=== PATIENT | female | born 2000 | race Caucasian/White ===

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

== ENCOUNTER 2021-01-15 20:43 | Emergency (ER) | payer MEDICAID ==
[~2021-01-15] VITALS: Ht 162.6 cm; Wt 118.2 kg
[~2021-01-15 20:43] MED LIST changes: +NITR100C6 PO; +PHEN-786 PO
[2021-01-15 20:50] VITALS: BP 149/98
== END 2021-01-16 00:40 | disposition left against medical advice (07) ==
LOC: ER 20:44
DX: M25.511 Pain in right shoulder (principal); Z53.21 Procedure and treatment not carried out due to patient leaving prior to being seen by health care provider

== ENCOUNTER 2021-01-16 07:09 | Emergency (ER) | payer MEDICAID ==
[~2021-01-16] VITALS: Ht 162.6 cm; Wt 121.0 kg
[2021-01-16 07:12] VITALS: BP 138/81
== END 2021-01-16 09:05 | disposition left against medical advice (07) ==
LOC: ER 07:09
DX: M25.519 Pain in unspecified shoulder (principal); Z53.21 Procedure and treatment not carried out due to patient leaving prior to being seen by health care provider

== ENCOUNTER 2021-03-27 19:29 | Emergency (ER) | payer MEDICAID ==
[~2021-03-27] VITALS: Ht 162.6 cm; Wt 122.7 kg
[2021-03-27 19:35] VITALS: BP 135/80
[2021-03-27] MEDS ORDERED: ketorolac trometh. 30mg/ml inj. IM ONE (20:30)
== END 2021-03-27 21:11 | disposition home or self-care (01) ==
LOC: ER 19:30
DX: S93.401A Sprain of unspecified ligament of right ankle, initial encounter (principal); Z79.899 Other long term (current) drug therapy; X58.XXXA Exposure to other specified factors, initial encounter; Y93.89 Activity, other specified; Y92.89 Other specified places as the place of occurrence of the external cause; Y99.8 Other external cause status
CPT/HCPCS: 73610; 96372; 99283; J1885

== ENCOUNTER 2021-07-27 07:21 | Emergency (ER) | payer MEDICAID ==
[~2021-07-27] VITALS: Ht 162.6 cm; Wt 122.7 kg
[2021-07-27 09:51] VITALS: BP 145/96
== END 2021-07-27 09:52 | disposition home or self-care (01) ==
LOC: ER 07:21
DX: J02.9 Acute pharyngitis, unspecified (principal); R05.9 Cough, unspecified; R50.9 Fever, unspecified; Z20.822 Contact with and (suspected) exposure to COVID-19
CPT/HCPCS: 71045; 87635; 99284; C9803

== ENCOUNTER 2023-11-13 23:43 | Emergency (ER) | payer MEDICAID ==
[~2023-11-13] VITALS: Ht 162.6 cm; Wt 127.3 kg
[2023-11-13 23:55] VITALS: BP 145/53; PULSE 80; RESP 16; TEMP 97.6; O2SAT 98
[2023-11-14] MEDS ORDERED: AMOX-580 PO (00:05)
== END 2023-11-14 00:30 | disposition home or self-care (01) ==
LOC: ER 23:43
DX: H66.91 Otitis media, unspecified, right ear (principal); Z79.899 Other long term (current) drug therapy
CPT/HCPCS: 99283

== ENCOUNTER 2024-02-09 23:03 | Emergency (ER) | payer MEDICAID ==
[~2024-02-09] VITALS: Ht 162.6 cm; Wt 129.6 kg
[~2024-02-09 23:03] MED LIST changes: -LOPE2CAP PO; -ONDA8TAB13 PO; -iohexol 300mg/ml 100ml inj. ONE
[2024-02-09 23:34] LABS: HEMOGLOBIN 12.2 g/dl (12.0-16.0)
[2024-02-09 23:36] LABS: BASOPHILS % (AUTO) 0.2 % (0-1); EOSINOPHILS % (AUTO) 0 % (0-6); HEMATOCRIT 36.9 % (35.0-45.0); LYMPHOCYTES # (AUTO) 1.3 X10'3 (1.1-4.8); LYMPHOCYTES % (AUTO) 7.8 % (21-51); MEAN CORPUSCULAR HGB CONC 33.1 g/dL (33.0-36.5); MEAN CORPUSCULAR VOLUME 81.6 FL (78-98); MEAN PLATELET VOLUME 8.3 FL (7.4-10.4); MONOCYTES % (AUTO) 6.3 % (2-12); NEUTROPHILS # (AUTO) 14.1 X10'3 (1.8-7.7); NEUTROPHILS % (AUTO) 85.7 % (42-75); PLATELET COUNT 275 X10'3 (140-440); RED BLOOD COUNT 4.52 X10'6 (4.20-5.60); RED CELL DISTRIBUTION WIDTH 14.1 % (11.5-14.5); WHITE BLOOD COUNT 16.4 X10'3 (4.5-11.0)
[2024-02-09] MEDS: acetaminophen 325mg tablet PO ONE (23:36)
[2024-02-09 23:45] LABS: ALANINE AMINOTRANSFERASE 20 U/L (12-78); ALBUMIN 3.3 G/DL (3.4-5.0); ALBUMIN/GLOBULIN RATIO 0.7 (1.1-1.5); ALKALINE PHOSPHATASE 54 IU/L (46-116); ANION GAP 10 (8-16); ASPARTATE AMINO TRANSFERASE 9 U/L (10-37); BILIRUBIN,TOTAL 0.4 MG/DL (0.1-1.0); BLOOD UREA NITROGEN 6 MG/DL (7-18); BUN/CREATININE RATIO 8.3 (10.0-20.0); CALCIUM 9.3 MG/DL (8.5-10.1); CHLORIDE 98 MMOL/L (99-107); CREATININE 0.72 MG/DL (0.40-0.90); GLUCOSE 101 MG/DL (70-104); LIPASE 23 U/L (16-77); POTASSIUM 3.6 MMOL/L (3.5-5.1); SODIUM 136 MMOL/L (135-145); TOTAL CARBON DIOXIDE 27.9 MMOL/L (24-32); TOTAL PROTEIN 7.8 G/DL (6.4-8.2); eCRCL 106 ML/MIN; eGFR > 90 ML/MIN
[2024-02-10] MEDS ORDERED: ONDA8TAB13 PO (01:51)
[2024-02-10] MEDS ORDERED: LOPE2CAP PO (01:51)
[2024-02-10] MEDS: ondansetron 4mg rapidly disintigrating tab PO ONE (02:11)
[2024-02-10 02:25] VITALS: BP 120/59; PULSE 100; RESP 18; TEMP 98.9; O2SAT 98
== END 2024-02-10 02:26 | disposition home or self-care (01) ==
LOC: ER 23:04
DX: K52.9 Noninfective gastroenteritis and colitis, unspecified (principal); R50.9 Fever, unspecified; R11.2 Nausea with vomiting, unspecified; Z79.899 Other long term (current) drug therapy; Z79.2 Long term (current) use of antibiotics
CPT/HCPCS: 36415; 76700; 80053; 83690; 85025; 99284

== ENCOUNTER → 2024-02-09 | Emergency (ER) | payer MEDICAID ==
[~2024-02-09] VITALS: Ht 162.6 cm; Wt 133.8 kg
[~2024-02-09] MED LIST changes: +LOPE2CAP PO; +ONDA8TAB13 PO; +iohexol 300mg/ml 100ml inj. ONE
[2024-02-09 09:25] VITALS: BP 126/89; PULSE 98; TEMP 97.8; O2SAT 98
[2024-02-09 10:17] LABS: BASOPHILS % (AUTO) 0.1 % (0-1); EOSINOPHILS # (AUTO) 0.1 X10'3 (0-0.9); EOSINOPHILS % (AUTO) 0.2 % (0-6); HEMATOCRIT 38.5 % (35.0-45.0); HEMOGLOBIN 12.5 g/dl (12.0-16.0); LYMPHOCYTES # (AUTO) 1.4 X10'3 (1.1-4.8); LYMPHOCYTES % (AUTO) 6.2 % (21-51); MEAN CORPUSCULAR HEMOGLOBIN 26.8 PG (27.0-31.0); MEAN CORPUSCULAR HGB CONC 32.3 g/dL (33.0-36.5); MEAN CORPUSCULAR VOLUME 82.8 FL (78-98); MEAN PLATELET VOLUME 8.3 FL (7.4-10.4); MONOCYTES % (AUTO) 4.5 % (2-12); NEUTROPHILS # (AUTO) 19.4 X10'3 (1.8-7.7); PLATELET COUNT 326 X10'3 (140-440); RED BLOOD COUNT 4.65 X10'6 (4.20-5.60); RED CELL DISTRIBUTION WIDTH 14.7 % (11.5-14.5); WHITE BLOOD COUNT 21.8 X10'3 (4.5-11.0)
[2024-02-09 10:34] LABS: ALANINE AMINOTRANSFERASE 22 U/L (12-78); ALBUMIN 3.5 G/DL (3.4-5.0); ALBUMIN/GLOBULIN RATIO 0.8 (1.1-1.5); ALKALINE PHOSPHATASE 57 IU/L (46-116); AMYLASE 42 U/L (25-115); ANION GAP 8 (8-16); ASPARTATE AMINO TRANSFERASE 11 U/L (10-37); BILIRUBIN,TOTAL 0.3 MG/DL (0.1-1.0); BLOOD UREA NITROGEN 10 MG/DL (7-18); BUN/CREATININE RATIO 13.3 (10.0-20.0); CALCIUM 9.3 MG/DL (8.5-10.1); CHLORIDE 101 MMOL/L (99-107); CREATININE 0.75 MG/DL (0.40-0.90); GLUCOSE 147 MG/DL (70-104); LIPASE 32 U/L (16-77); POTASSIUM 3.9 MMOL/L (3.5-5.1); SODIUM 136 MMOL/L (135-145); TOTAL CARBON DIOXIDE 27.5 MMOL/L (24-32); eCRCL 102 ML/MIN; eGFR > 90 ML/MIN
[2024-02-09 11:29] LABS: URINE HCG NEGATIVE (NEG)
[2024-02-09 11:32] LABS: BILIRUBIN,URINE NEGATIVE (Neg); CLARITY,URINE CLOUDY (Clear); COLOR,URINE YELLOW (Yellow); GLUCOSE, URINE NEGATIVE (Neg); KETONES,URINE NEGATIVE (Neg); LEUKOCYTE ESTERASE ,URINE NEGATIVE (Neg); NITRITES, URINE NEGATIVE (Neg); OCCULT BLOOD,URINE MODERATE (Neg); PH,URINE 5.5 (4.8-8.0); PROTEIN,URINE NEGATIVE (Neg); UROBILINOGEN,URINE 0.2 E.U/dL (0.2-1.0)
[2024-02-09 11:47] LABS: UA COLLECTION TYPE CLN CATCH MIDSTREAM
[2024-02-09 11:56] LABS: AMORPHOUS URATES 4+; SQUAMOUS EPITHELIAL CELL,UR MODERATE /LPF (FEW)
[2024-02-09 12:17] LABS: WBC,URINE NONE SEEN /HPF (0-4)
[2024-02-09 12:18] LABS: BACTERIA,URINE FEW /HPF (Neg); RBC,URINE NONE SEEN /HPF (0-2)
[2024-02-09] MEDS: ondansetron/PF 4mg/2ml inj IV ONE (12:43)
[2024-02-09] MEDS: morphine 2 MG/ML inj. syringe IV PRN (12:43)
[2024-02-09 13:49] VITALS: RESP 14
== END | disposition home or self-care (01) ==
LOC: ER 09:22
DX: R10.11 Right upper quadrant pain (principal); R10.31 Right lower quadrant pain
CPT/HCPCS: 36415; 74177; 76700; 80053; 81001; 81025; 82150; 83690; 85025; 96374; 96375; 99285; J2270; J2405; J3490; Q9967

== ENCOUNTER 2025-01-02 19:17 | Emergency (ER) | payer MEDICAID ==
[~2025-01-02] VITALS: Ht 162.6 cm; Wt 111.2 kg
[~2025-01-02 19:17] MED LIST changes: +LOPE2CAP PO; +ONDA-245 PO
[2025-01-02 19:20] VITALS: TEMP 98.1
--- NOTE | 2025-01-02 20:10 | Physician Documentation ---
History of Present Illness ~ Chief Complaint: Post-operative complication Stated Complaint: POST OP COMPLICATIONS Time Seen by MD: 19:48 OK to notify your PCP?: Yes Primary Medical Doctor: DEVON Bhardwaj Source: patient Mode of Arrival: POV Exam Limitations: no limitations HPI This is a 24-year-old female who comes in stating that two months ago she had a gastric sleeve performed in [facility] by a Dr. Dariusz Mantilla. She says starting yesterday she has not been able to keep water or food down. He states it feels like it is sits in her epigastric area and comes back up. She called the surgeon who performed the gastric sleeve who told her to come to the ER. The patient was states she had one syncopal episode earlier today which prompted her to come to the ER. Right now she was not complaining of pain though she states she gets some gastric distention when she swallows food or fluid. She denies change in bladder or bowel habits. She denies chest pain or shortness of breath. Medication Reconciliation Allergies: Coded Allergies: No Known Allergies (Unverified , 02/09/24) Scheduled Diphenhydramine Hcl (Benadryl), 1 CAP PO HS Loperamide Hcl (Loperamide), 2 CAP PO Q6H Nitrofurantoin Monohyd/M-Cryst (Macrobid 100 mg Capsule), 1 CAP PO Q12H Ondansetron 8mg ODT (Ondansetron Odt), 1 TAB PO Q6H Phenazopyridine Hcl (Pyridium tablet), 1 TAB PO Q8H Past Medical History Past Medical History: No Pertinent History Past Surgical History: no surgical history Alcohol Use: None Drug Use: none Lives with: Family Lives In: Home Occupation: child Physical Exam Vital Signs: Temperature: 98.1, Source: Oral, Heart Rate: 61, Respiratory Rate: 18, BP: 130/64, Pulse Oximetry: 99, Weight: 111.200 Pulse Oximetry Reflects: adequate oxygenation General Appearance: alert, WD/WN, obese Respiratory No accessory muscle use or retractions. Lungs are clear to auscultation in all [place]. Gastrointestinal No tenderness to palpation x4 quads. Normoactive bowel sounds x4 quads. No rigidity, rebound or guarding. Skin: normal color, warm/dry Progress Results/Orders Reviewed/noted all lab results: Yes Results/Orders Medications Received in ER Medications (Trade) Dose Ordered Sig/Sloan Route PRN Reason Start Time Stop Time Status Last Admin Dose Admin Sodium Chloride 1,000 ml @ 200 mls/hr Q5H ONCE IV 01/02/25 20:05 01/03/25 01:04 DC 01/02/25 20:28 200 MLS/HR (Zofran 4mg/2ml vial) 4 mg ONCE ONCE IV 01/02/25 20:05 01/02/25 20:08 DC 01/02/25 20:28 4 MG (Gastrografin 66-10 oral solution) 30 ml ONCE ONCE PO 01/02/25 22:30 01/02/25 22:31 DC 01/02/25 22:35 30 ML Vital Signs 01/02/25 01/02/25 01/02/25 01/02/25 19:20 21:00 23:17 23:39 Temp 98.1 Pulse 61 61 Resp 18 14 16 B/P (MAP) 130/64 106/48 (67) Pulse Ox 99 99 O2 Flow Rate 0 01/03/25 01/03/25 00:46 01:33 Pulse 51 52 Resp 17 15 B/P (MAP) 106/55 (72) 119/53 (75) Pulse Ox 99 97 Laboratory Tests Test 01/02/25 20:14 White Blood Count 9.6 Red Blood Count 4.94 Hemoglobin 13.6 Hematocrit 40.9 Mean Corpuscular Volume 82.9 Mean Corpuscular Hemoglobin 27.5 Mean Corpuscular Hemoglobin Concent 33.1 Red Cell Distribution Width 16.2 H Platelet Count 234 Mean Platelet Volume 9.3 Neutrophils (%) (Auto) 63.8 Lymphocytes (%) (Auto) 28.3 Monocytes (%) (Auto) 6.9 Eosinophils (%) (Auto) 0.7 Basophils (%) (Auto) 0.3 Neutrophils # (Auto) 6.1 Lymphocytes # (Auto) 2.7 Monocytes # (Auto) 0.7 Eosinophils # (Auto) 0.1 Basophils # (Auto) 0.0 CBC Comment Sodium Level 140 Potassium Level 3.5 Chloride Level 104 Carbon Dioxide Level 22.9 L Anion Gap 13 Blood Urea Nitrogen 6 L Creatinine 0.53 Estimated GFR/1.73 m2 > 90 BUN/Creatinine Ratio 11.3 Glucose Level 79 Calcium Level 9.5 Total Bilirubin 0.6 Aspartate Amino Transf (AST/SGOT) 28 Alanine Aminotransferase (ALT/SGPT) 41 Alkaline Phosphatase 79 Total Protein 7.6 Albumin 4.0 Globulin 3.6 Albumin/Globulin Ratio 1.1 HCG Beta Subunit < 1.0 Chemistry Comments Medical Decision Making Findings I suspect the patient has a either in his off she was stricture or esophageal obstruction. I called and spoke with the on-call electrical prospector before performing any imaging. He suggested that I get a CT scan of the chest and abdomen with oral and IV contrast. I did voice my concerns as the patient was not able to keep any fluids down and did not want her to aspirate. He was still suggested that I get the imaging so I did order this study. Dr. Hood: Upon re-evaluation patient was sitting comfortably upright in bed. Labs were reassuring for no signs of dehydration although I do believe she was having problems with possible esophageal stricture or regurgitation she was states she feels comfortable to follow up with her doctor today regarding management. Patient has been instructed to return to the emergency room if she was unable to keep anything down. Additional Comments Esophageal stricture. Complications of gastric sleeve. Departure Disposition: HOME / SELF CARE / HOMELESS Impression: Primary Impression: Dysphagia Condition: Fair Discharge Instructions: Dysphagia Additional Instructions: Follow up with your electrical prospector today for management Referrals: NO PRIMARY CARE PROVIDER (PCP) Education Educated: Patient Educated regarding: diagnosis, need for follow up Signature Scribe Signature: No scribe Attestation: The note accurately reflects work and decisions made by me.Barrera Hood MD 01/03/25 02:21 LA RIVERA Jan 02, 2025 20:10 BARRERA HOOD MD Jan 03, 2025 02:22
[2025-01-02 20:26] LABS: BASOPHILS % (AUTO) 0.3 % (0-1); EOSINOPHILS # (AUTO) 0.1 X10'3 (0-0.9); EOSINOPHILS % (AUTO) 0.7 % (0-6); HEMATOCRIT 40.9 % (35.0-45.0); HEMOGLOBIN 13.6 g/dl (12.0-16.0); LYMPHOCYTES # (AUTO) 2.7 X10'3 (1.1-4.8); LYMPHOCYTES % (AUTO) 28.3 % (21-51); MEAN CORPUSCULAR HEMOGLOBIN 27.5 PG (27.0-31.0); MEAN CORPUSCULAR HGB CONC 33.1 g/dL (33.0-36.5); MEAN CORPUSCULAR VOLUME 82.9 FL (78-98); MEAN PLATELET VOLUME 9.3 FL (7.4-10.4); MONOCYTES # (AUTO) 0.7 X10'3 (0-0.9); MONOCYTES % (AUTO) 6.9 % (2-12); NEUTROPHILS # (AUTO) 6.1 X10'3 (1.8-7.7); NEUTROPHILS % (AUTO) 63.8 % (42-75); PLATELET COUNT 234 X10'3 (140-440); RED BLOOD COUNT 4.94 X10'6 (4.20-5.60); RED CELL DISTRIBUTION WIDTH 16.2 % (11.5-14.5); WHITE BLOOD COUNT 9.6 X10'3 (4.5-11.0)
[2025-01-02] MEDS: normal saline 1000ml 1,000 ML IV ONE (20:28)
[2025-01-02] MEDS: ondansetron/PF 4mg/2ml inj IV ONE (20:28)
[2025-01-02 21:14] LABS: ALANINE AMINOTRANSFERASE 41 U/L (12-78); ALBUMIN/GLOBULIN RATIO 1.1 (1.1-1.5); ALKALINE PHOSPHATASE 79 IU/L (46-116); ANION GAP 13 (8-16); ASPARTATE AMINO TRANSFERASE 28 U/L (10-37); BILIRUBIN,TOTAL 0.6 MG/DL (0.1-1.0); BLOOD UREA NITROGEN 6 MG/DL (7-18); BUN/CREATININE RATIO 11.3 (10.0-20.0); CALCIUM 9.5 MG/DL (8.5-10.1); CHLORIDE 104 MMOL/L (99-107); CREATININE 0.53 MG/DL (0.40-0.90); GLUCOSE 79 MG/DL (70-104); POTASSIUM 3.5 MMOL/L (3.5-5.1); SODIUM 140 MMOL/L (135-145); TOTAL CARBON DIOXIDE 22.9 MMOL/L (24-32); TOTAL PROTEIN 7.6 G/DL (6.4-8.2); eCRCL 143 ML/MIN; eGFR > 90 ML/MIN
[2025-01-02 21:15] LABS: BETA HCG,QUANTITATIVE < 1.0 mIU/ml
[2025-01-02] MEDS ORDERED: diatrozoate meglu/diatrozoate sod (37% iodine) 120ML oral solution PO ONE ×2 (22:00→22:30)
[2025-01-02] MEDS: diatr meglu/diatrizoate 30ml oral sol.-(3 dose) bottle PO ONE (22:35)
[2025-01-02] MEDS ORDERED: iohexol 300mg/ml 100ml inj. ONE (22:51)
[2025-01-03 01:33] VITALS: BP 119/53; PULSE 52; RESP 15; O2SAT 97
--- NOTE | 2025-01-03 01:48 | RADIOLOGY REPORT ---
Clinical History Rule out esophageal stricture/obstruction, cant keep down gastrovue Comparison CT ABD/PEL on 02/09/2024, 453 images. Technique: All CT scans at this medical facility are performed using dose modulation techniques as appropriate t o a performed exam including the following: Automated exposure control was utilized; adjustment of th e mA and/or kV according to patient size; and use of iterative reconstruction technique. All CT studies are reported to the Dose Index Registry of the [employer]. Contrast: OMNIPAQUE 300, 100ML Radiation Dose: CTDI (mGy): 36.63; DLP (mGy-cm): 2396.65 STEPHANIE SAHNI, [id number] FINDINGS: Thyroid: Within normal limits. Mediastinum: Within normal limits. Heart: Within normal limits. Aorta: Within normal limits. Vasculature: Within normal limits. Lungs: Within normal limits. Pleura: Within normal limits. Bones: Within normal limits. Soft tissues: Within normal limits. Liver: Within normal limits. Biliary tree: Within normal limits. Gallbladder: Within normal limits. Pancreas: Within normal limits. Spleen: Within normal limits. Retroperitoneum/peritoneum/bowel mesentery: several enlarged retroperitoneal lymph nodes. Free fluid: none. Vascular structures: Within normal limits. Adrenal glands: Within normal limits. Kidneys: Within normal limits. Bladder: Within normal limits. Reproductive organs: Within normal limits. Stomach: prior gastric surgery. Small bowel: Within normal limits. Large bowel: Within normal limits. Rectum: Within normal limits. Appendix: Within normal limits. Osseous structures: Within normal limits. Soft tissues: small fat-containing umbilical hernia. IMPRESSION: No evidence for acute intrathoracic findings. Clear lungs. Unremarkable mediastinum. several enlarged retroperitoneal lymph nodes. Small fat-containing umbilical hernia. Prior gastric surgery. No evidence for solid organ injury. This report was electronically signed by Mikie Oliver MD on 01/03/2025 1:45:44 AM.
== END 2025-01-03 02:50 | disposition home or self-care (01) ==
LOC: ER 19:17
DX: R13.10 Dysphagia, unspecified (principal)
CPT/HCPCS: 36415; 71260; 74177; 80053; 84702; 85025; 96361; 96374; 99285; J2405; J7030; Q9967

== ENCOUNTER 2025-04-07 23:57 | Emergency (ER) | payer MEDICAID ==
[~2025-04-07] VITALS: Ht 162.6 cm; Wt 91.8 kg
[2025-04-08 00:10] VITALS: BP 112/60; PULSE 80; RESP 16; TEMP 98.6; O2SAT 100
[2025-04-08 01:14] LABS: MEAN PLATELET VOLUME 9.2 FL (7.4-10.4); RED CELL DISTRIBUTION WIDTH 13.4 % (11.5-14.5)
[2025-04-08 01:32] LABS: CREATININE 0.52 MG/DL (0.40-0.90); TOTAL CARBON DIOXIDE 23.3 MMOL/L (24-32); eCRCL 145 ML/MIN; eGFR > 90 ML/MIN
== END 2025-04-08 01:54 | disposition left against medical advice (07) ==
LOC: ER 23:57
DX: R10.31 Right lower quadrant pain (principal); Z53.21 Procedure and treatment not carried out due to patient leaving prior to being seen by health care provider
CPT/HCPCS: 36415; 80053; 83690; 85025